=== PATIENT | male | born 1960 | race Caucasian/White ===

== ENCOUNTER 2018-01-10 05:26 | Emergency (ER) | payer BC, MEDICAID ==
[2018-01-10] MEDS ORDERED: Aspirin 81 MG Tab.Chew PO ONE (05:37)
[2018-01-10] MEDS ORDERED: Clopidogrel 75 MG Tab PO ONE (05:45)
[2018-01-10] MEDS ORDERED: Heparin Sodium 5,000 Units/ML Vial IVPUSH ONE (05:46)
[2018-01-10] MEDS ORDERED: Morphine 4 MG/ML Syringe IVPUSH ONE (05:52)
--- NOTE | 2018-01-10 05:52 | EDM.PDOC ---
ED HPI GENERAL MEDICAL PROBLEM - General Chief Complaint: Chest Pain Stated Complaint: CHEST PAIN Time Seen by Provider: 01/10/18 05:40 Source of Information: Reports: Patient History Limitations: Reports: No Limitations - History of Present Illness INITIAL COMMENTS - FREE TEXT/NARRATIVE: 57-year-old male with no prior cardiac history presents with crushing chest pain for the last 8 hours. It is substernal and radiates into his shoulders. He feels dyspnea. Diaphoresis is present but no significant nausea. Onset: Sudden (Pain started fairly suddenly 8 hours ago) Location: Reports: Chest Severity: Moderate Worsens with: Reports: None Associated Symptoms: Reports: Chest Pain, Diaphoresis, Shortness of Breath. Denies: Cough, Nausea/Vomiting Anterior Chest Pain Score (Numeric/FACES): 10 - Related Data Allergies Allergy/AdvReac Type Severity Reaction Status Date / Time fluoxetine HCl [From Prozac] AdvReac Mild Headache Verified 01/10/18 05:35 venlafaxine HCl AdvReac Dizziness Verified 01/10/18 05:35 [From Effexor] Home Meds: Home Meds traMADol [Ultram] 50 mg PO Q4H PRN 05/28/13 [History] Acetaminophen/HYDROcodone [[place] 325-7.5 MG] 1 - 2 tab PO Q4H PRN #50 tablet 05/11 [Rx] Past Medical History - Past Health History Medical/Surgical History: Denies Medical/Surgical History Social & Family History - Tobacco Use Smoking Status *Q: Current Every Day Smoker Years of Tobacco use: 36 Packs/Tins Daily: 1 - Caffeine Use Caffeine Use: Reports: None - Recreational Drug Use Recreational Drug Use: Yes Recreational Drug Type: Reports: Marijuana/Hashish ED ROS GENERAL - Review of Systems Review Of Systems: See Below Constitutional: Denies: Fever, Chills HEENT: Reports: No Symptoms Respiratory: Reports: Shortness of Breath Cardiovascular: Reports: Chest Pain GI/Abdominal: Reports: Nausea (Date). Denies: Abdominal Pain, Vomiting Skin: Reports: Diaphoresis Psychiatric: Reports: Anxiety ED EXAM, GENERAL - Physical Exam Exam: See Below Exam Limited By: No Limitations General Appearance: Alert, Moderate Distress Eye Exam: Bilateral Eye: EOMI Head: Atraumatic Respiratory/Chest: No Respiratory Distress, Lungs Clear Cardiovascular: Regular Rate, Rhythm. No: Extra Beats GI/Abdominal: Tender (Reacts with some tenderness to palpation diffusely) Extremities: Normal Inspection. No: Pedal Edema Neurological: Alert, Oriented Psychiatric: Anxious Skin Exam: Warm, Diaphoretic, Pallor EKG INTERPRETATION ST-T: Elevated (Anterior leads) Course - Vital Signs Last Recorded V/S: Last Vital Signs Temp 95.1 F L 01/10/18 05:39 Pulse 67 01/10/18 05:39 Resp 15 01/10/18 06:07 BP 130/87 01/10/18 06:07 Pulse Ox 97 01/10/18 06:07 - Orders/Labs/Meds Orders: Active Orders 24 hr Category Date Time Status EKG Documentation Completion [RC] ASDIRECTED Care 01/10/18 05:35 Active Saline Lock Insert [OM.PC] Routine Oth 01/10/18 05:55 Ordered EKG 12 Lead [EK] Routine Ther 01/10/18 05:35 Ordered Labs: Laboratory Tests 01/10/18 01/10/18 01/10/18 Range/Units 05:40 05:40 05:40 WBC 11.6 H (4.5-11.0) K/uL RBC 5.81 (4.30-5.90) M/uL Hgb 17.8 H (12.0-15.0) g/dL Hct 51.1 (40.0-54.0) % MCV 88 (80-98) fL MCH 31 (27-31) pg MCHC 35 (32-36) % Plt Count 333 (150-400) K/uL Neut % (Auto) 76 H (36-66) % Lymph % (Auto) 17 L (24-44) % Foster % (Auto) 6 (2-6) % Eos % (Auto) 0 L (2-4) % Baso % (Auto) 0 (0-1) % PT 10.0 (9.5-12.0) sec INR 0.90 (0.80-1.20) Sodium 138 L (140-148) mmol/L Potassium 3.8 (3.6-5.2) mmol/L Chloride 102 (100-108) mmol/L Carbon Dioxide 25 (21-32) mmol/L Anion Gap 14.8 H (5.0-14.0) mmol/L BUN 19 H D (7-18) mg/dL Creatinine 1.0 (0.8-1.3) mg/dL Est Cr Clr Drug Dosing 84.67 mL/min Estimated GFR (MDRD) > 60 (>60) Glucose 119 H (74-106) mg/dL Calcium 9.8 D (8.5-10.1) mg/dL Troponin I 1.347 H* (0.000-0.056) ng/mL Meds: Medications Discontinued Medications Generic Name Dose Route Start Last Admin Trade Name Freq PRN Reason Stop Dose Admin Aspirin 324 mg 01/10/18 05:37 01/10/18 05:44 Aspirin PO 01/10/18 05:38 324 mg ONETIME ONE Administration Clopidogrel Bisulfate 600 mg 01/10/18 05:45 01/10/18 05:52 Plavix PO 01/10/18 05:46 600 mg ONETIME ONE Administration Heparin Sodium (Porcine) 5,000 units 01/10/18 05:46 01/10/18 05:53 Heparin Sodium IVPUSH 01/10/18 05:47 5,000 units ONETIME ONE Administration Heparin Sodium/Dextrose Confirm 01/10/18 06:06 01/10/18 06:14 Heparin 25,000 Units In D5w 500 Ml Administered 01/10/18 06:07 Not Given Dose 500 mls @ as directed .ROUTE .STK-MED ONE Heparin Sodium/Dextrose 25,000 units in 500 mls @ 16 mls/hr 01/10/18 06:15 06:13 Heparin 25,000 Units In D5w 500 Ml IV 800 units/hr TITRATE JOSUE 16 mls/hr Administration Protocol 800 UNITS/HR Morphine Sulfate 4 mg 01/10/18 05:52 01/10/18 05:57 Morphine IVPUSH 01/10/18 05:53 4 mg ONETIME ONE Administration Nitroglycerin 0.4 mg 01/10/18 05:55 01/10/18 05:40 Nitrostat SL 01/10/18 05:56 0.4 mg ONETIME ONE Administration Sodium Chloride 10 ml 01/10/18 05:55 01/10/18 05:59 Saline Flush FLUSH 10 ml ASDIRECTED PRN Administration Keep Vein Open - Re-Assessments/Exams Free Text/Narrative Re-Assessment/Exam: 01/10/18 05:50 EKG done on arrival showed likely anterior MO. An IV was started, patient was given a sublingual nitroglycerin after his blood pressure was measured at 170/ 113. He was given 324 mg of chewable aspirin. EKG was faxed to cardiology in [facility], patient was given 600 mg of by mouth Plavix and a 5000 unit bolus of heparin was given IV and 800 units of heparin per hour IV drip was initiated. Patient was accepted for urgent transfer and air care was arranged. He was given 4 mg of IV morphine prior to leaving. 01/10/18 06:49 After the patient had left his troponin returned fairly elevated at 1.347. Departure - Departure Time of Disposition: 06:25 Disposition: DC/Tfer to Acute Hospital 02 Reason for Transfer *Q: Primary PCI Indicated Condition: Fair Clinical Impression: Acute myocardial infarction Qualifiers: Myocardial infarction type: ST elevation myocardial infarction Involved coronary artery: unspecified coronary artery Qualified Code(s): I21.3 - ST elevation (STEMI) myocardial infarction of unspecified site Referrals: PCP,None [Primary Care Provider] - Forms: ED Department Discharge Care Plan Goals: Patient was urgently transferred to [facility] for cardiac catheterization for acute STEMI. - My Orders Last 24 Hours: My Active Orders 01/10/18 05:35 EKG Documentation Completion [RC] ASDIRECTED EKG 12 Lead [EK] Routine 01/10/18 05:55 Saline Lock Insert [OM.PC] Routine - Assessment/Plan Last 24 Hours: My Active Orders 01/10/18 05:35 EKG Documentation Completion [RC] ASDIRECTED EKG 12 Lead [EK] Routine 01/10/18 05:55 Saline Lock Insert [OM.PC] Routine
[2018-01-10] MEDS ORDERED: Nitroglycerin 0.4 MG Tab.SL SL ONE (05:55)
[2018-01-10] MEDS ORDERED: Sodium Chloride 0.9% 10 ML Syringe FLUSH PRN (05:55)
[2018-01-10] MEDS ORDERED: Heparin Sodium/D5W 25,000 UNITS/500 ML BAG IV SCH ×3 (06:00→06:15)
[2018-01-10] MEDS ORDERED: Heparin Sodium/D5W 500 ML ONE (06:06)
[2018-01-10 06:18] VITALS: BP 130/87
== END 2018-01-10 06:10 ==
LOC: JP.ED 05:26
DX: I21.3 ST elevation (STEMI) myocardial infarction of unspecified site (principal); F17.210 Nicotine dependence, cigarettes, uncomplicated; Z88.8 Allergy status to other drugs, medicaments and biological substances
CPT/HCPCS: 36415; 80048; 84484; 85025; 85610; 93005; 96374; 96375; 99285; A9270; J1644; J2270; J7050